=== PATIENT | male | born 1965 | race American Indian/Alaskan Native ===

== ENCOUNTER 2024-05-10 09:29 | Emergency (ER) | payer BC, OTHER ==
[~2024-05-10] VITALS: Ht 180.3 cm; Wt 115.3 kg
[~2024-05-10 09:29] MED LIST: CITALOPRAM HBR40 MG PO; CRESTOR40 MG PO; NOVOLOG100 UNITS/ SUB-Q; PERCOCET 7.5-31 EACH PO; PRILOSEC OTC20 MG PO; TRAZODONE HCL150 MG PO
[2024-05-10] MEDS ORDERED: OZEMPIC1 MG/0.71 SQ (09:41)
[2024-05-10] MEDS ORDERED: FENOFIBRATE160 MG PO (09:41)
[2024-05-10] MEDS ORDERED: METOPROLOL SUC200 MG PO (09:41)
[2024-05-10] MEDS ORDERED: CHLORTHALIDONE25 MG PO (09:41)
[2024-05-10] MEDS ORDERED: LEVOTHYROXINE75 MCG PO (09:41)
[2024-05-10] MEDS ORDERED: AMOXICILLIN/CLAVULANATE K 875 MG TAB PO ONE (09:45)
[2024-05-10] MEDS ORDERED: AMOX TR-K CLV1 EAC1 PO (10:25)
[2024-05-10 11:15] VITALS: BP 111/79
== END 2024-05-10 11:15 | disposition home or self-care (01) ==
LOC: ED 09:29
DX: L03.115 Cellulitis of right lower limb (principal); S91.341A Puncture wound with foreign body, right foot, initial encounter; W26.8XXA Contact with other sharp object(s), not elsewhere classified, initial encounter; E10.9 Type 1 diabetes mellitus without complications; I10 Essential (primary) hypertension; Z87.891 Personal history of nicotine dependence; Z88.1 Allergy status to other antibiotic agents; Z79.4 Long term (current) use of insulin; Z79.890 Hormone replacement therapy; Z79.899 Other long term (current) drug therapy
CPT/HCPCS: 12001; 76882; 99283-25